=== PATIENT | female | born 1970 | race Caucasian/White ===

== ENCOUNTER 2019-06-10 11:33 | Day surgery (SDC) | payer BC ==
[2019-06-10] VITALS (11 sets, daily range): BP systolic 125–154; BP diastolic 61–78; PULSE 54–64; RESP 13–18; Ht 154.9 cm; Wt 90.1 kg
[~2019-06-10] VITALS: Ht 154.9 cm; Wt 90.1 kg
[~2019-06-10 11:33] MED LIST: HYDR25TA6 PO
[2019-06-10] MEDS ORDERED: LACTATED RINGER'S 1,000 ML IV SCH (13:00)
--- NOTE | 2019-06-10 13:02 | HPN ---
Date/Time of Note Date/Time of Note DATE: 06/10/19 TIME: 13:02 Interval H&P Admission Note Pt. seen H&P reviewed: No system changes CALIN EDWARD DPM Jun 10, 2019 13:02
[2019-06-10] MEDS ORDERED: BUPIVACAINE 0.5% (SDV) 30 ML INJ ONE (13:47)
--- NOTE | 2019-06-10 13:53 | PREAC ---
Date/Time of Note Date/Time of Note DATE: 06/10/19 TIME: 13:51 Anesthesia Eval and Record Evaluation Time Pre-Procedure Interview DATE: 06/10/19 TIME: 13:51 Age 49 Sex female NPO: 8 hrs Preoperative diagnosis L foot tumor Planned procedure L foot tumor plantar aspect Past Medical History Past Medical History: Includes Cardio: HTN GI: Obesity Surgery & Anesthesia Issues No known issue Meds Anticoagulation: No Beta José Miguel within 24 hr: No Reason Beta José Miguel not given: Pt. not on B-José Miguel Reported Medications Hydrochlorothiazide* (Hydrochlorothiazide*) 25 Mg Tab, 25 MG PO DAILY, #30 TAB 06/10/19 Current Medications Lactated Ringer's 1,000 ml @ 0 mls/hr Q0M IV ; Start 06/10/19 at 13:00 Meds reviewed: Yes Allergies Coded Allergies: No Known Allergy (Unverified , 06/10/19) Allergies Reviewed: Yes Labs/Studies Labs Reviewed: Reviewed by anesthesiologist test: Negative Pre-procedure Exam Last vitals Vital Signs Date Temp Pulse Resp B/P (MAP) Pulse Ox O2 O2 Flow FiO2 Time Delivery Rate 06/10/19 97.9 64 16 138/68 97 Room Air 12:28 (91) Airway: Adequate mouth opening, Adequate thyromental dist Mallampati: Mallampati II Teeth: Normal Lung: Normal Heart: Normal ASA Physical Status ASA physical status: 2 Emergency: None Planned Anesthetic General/MAC: MAC Pre-operative Attestations Prior to commencing anesthesia and surgery, the patient was re-evaluated, there was verification of: *The patient's identity *The results of appropriate recent lab work and preoperative vital signs *The above evaluation not changing prior to induction *Anesthetic plan, risk benefits, alternative and complications discussed with patient/family; questions answered; patient/family understands, accepts and wishes to proceed. Senior Administrative Services Officer used OZZY SAUER Jun 10, 2019 13:53
[2019-06-10] MEDS ORDERED: LIDOCAINE 1% (MDV) 20 ML INJ ONE (13:56)
[2019-06-10] MEDS ORDERED: FENTAnyl 50 MCG/ML VIAL ONE (13:57)
[2019-06-10] MEDS ORDERED: MIDAZOLAM 1 MG/ML 2 ML INJ ONE (13:57)
[2019-06-10] MEDS ORDERED: CEFAZOLIN 1 GM INJ ONE (13:57)
[2019-06-10] MEDS ORDERED: OXYCODONE/ACETAMINOPHEN (5/325) TAB PO PRN ×2 (14:00)
[2019-06-10] MEDS ORDERED: EPHEDrine 25 MG/5 ML SYG IV PRN (14:00)
[2019-06-10] MEDS ORDERED: ALBUTEROL 0.083% (NEB) 2.5 MG/3 ML AMP HHN PRN (14:00)
[2019-06-10] MEDS ORDERED: DIPHENHYDRAMINE 50 MG INJ IV PRN (14:00)
[2019-06-10] MEDS ORDERED: hydrALAzine 20 MG INJ IV PRN (14:00)
[2019-06-10] MEDS ORDERED: ONDANSETRON 4 MG INJ IV PRN (14:00)
[2019-06-10] MEDS ORDERED: HYDROmorphONE 1 MG/5 ML IV SYRINGE IV PRN ×3 (14:00)
[2019-06-10] MEDS ORDERED: LABETALOL HCL 20MG INJ IV PRN (14:00)
[2019-06-10] MEDS ORDERED: FENTAnyl 50 MCG/ML VIAL IV PRN ×2 (14:00)
[2019-06-10] MEDS ORDERED: MEPERIDINE 25 MG INJ IV PRN (14:00)
[2019-06-10] MEDS ORDERED: morphine 2 MG INJ IV PRN ×2 (14:00)
[2019-06-10] MEDS ORDERED: PROPOFOL 60 ML ONE (14:20)
[2019-06-10] MEDS ORDERED: BUPIVACAINE 0.5% (SDV) 30 ML INJ INJ ONE (14:30)
[2019-06-10] MEDS ORDERED: POVIDONE IODINE 10% 28.4 GM OINT ONE (14:41)
--- NOTE | 2019-06-10 15:05 | PAC ---
Date/Time of Note Date/Time of Note DATE: 06/10/19 TIME: 15:04 Post-Anesthesia Notes Post-Anesthesia Note Last documented vital signs Vital Signs Date Temp Pulse Resp B/P Pulse Ox O2 O2 Flow FiO2 Time (MAP) Delivery Rate 06/10/19 97.9 97.6 64 67 16 16 138/68 97 99 Room 12:28 145 (91) 136 Air RA Activity: WNL Respiratory function: WNL Cardiovascular function: WNL Mental status: Baseline Pain reasonably controlled: Yes Hydration appropriate: Yes Nausea/Vomiting absent: Yes OZZY SAUER Jun 10, 2019 15:05
--- NOTE | 2019-06-10 15:18 | SIPON ---
Date/Time of Note Date/Time of Note DATE: 06/10/19 TIME: 14:53 Operative Report Preoperative Diagnosis Tumor plantar left foot Postoperative Diagnosis Same Operation/Procedure Performed Excision of tumor plantar left foot Surgeon see signature line digital marketing assistant None Anesthesia: general Estimated blood loss: minimal Transfusion Required none Specimen Cyst Grafts/Implants none Complications none CALIN EDWARD DPM Jun 10, 2019 15:14
--- NOTE | 2019-06-10 15:46 | HP ---
DATE OF ADMISSION: 06/10/2019 The patient being admitted to the hospital for elective foot surgery; palliative treatment was unsucc essful. Patient has been explained surgery, complications, alternatives and elected to have elective foot surgery. HISTORY OF PRESENT ILLNESS: The patient has a tumor on the plantar surface of the left foot. ALLERGIES: DENIES ANY TO ANY MEDICINE. She is taking high blood pressure medicine. Denies in any review of system, any heart, lung, liver, kidney, thyroid problems. Denies diabetes, denies smoking or alcohol. See any other pertinent history and upper extremity physical exam by Dr. Hutchinson. Lower extremity physi meghan exam shows the DP and PT equal and regular. NEUROLOGICAL: Negative for pathology. Dermatological shows a tumor plantar of left foot. MUSCULOSKELETAL: Negative for pathology. FINAL DIAGNOSIS: Tumor, plantar left foot. Dictated By: CALIN STONER/HANH Conf#: [id number] DID#: [id number]
[2019-06-10] MEDS ORDERED: ACETAMINOPHEN 325 MG TAB PO ONE (18:00)
--- NOTE | 2019-06-10 18:04 | OPR ---
DATE OF OPERATION: 06/10/2019 PREOPERATIVE DIAGNOSIS: Tumor, plantar left foot. POSTOPERATIVE DIAGNOSIS: Tumor, plantar left foot. PROCEDURE: Excision of tumor of left foot. SURGEON: Calin Hatr DPM DESCRIPTION OF PROCEDURE: The patient was brought to the surgical suite, placed in the supine positi on. The patient is under general anesthesia. The patient has sterile prep and drape and pneumatic c uff high at the ankle. The first incision was semi-elliptical incision going plantar distal to proxi mal approximately 4 cm in length and then a second incision going in the same direction connecting th e 2 ends of the other incision with the tumor in center of it. The excision was made of all this tis carmen including the tumor then subcutaneously, the area was explored and subcutaneous abnormal tissue w as removed and then cleansed. A 3-0 Vicryl was used to coaptate subcutaneous tissue and the skin was coaptated using 5-0 Nylon. The patient had injection of 0.5% Marcaine to prolong anesthesia and has a dressing of half inch Steri-Strips, Betadine ointment, 4 x 4's impregnated with Betadine solution and Mario with an outer layer of Coban made into a semi-compressive dressing. The patient tolerated surgery well and was returned to recovery room in satisfactory condition. Dictated By: CALIN HART DPM for CHAY STONER/HANH Conf#: [id number] DID#: [id number]
== END 2019-06-10 18:20 | disposition home or self-care (01) ==
LOC: SDS 11:33
PROVIDERS: ATTEND Podiatrist
DX: D21.22 Benign neoplasm of connective and other soft tissue of left lower limb, including hip (principal); I10 Essential (primary) hypertension; E66.9 Obesity, unspecified
CPT/HCPCS: 88307; J0690; J1170; J2250; J2405; J3010